=== PATIENT | female | born 1980 | race Caucasian/White ===

== ENCOUNTER 2017-06-11 13:54 | Emergency (ER) | payer OTHER ==
[2017-06-11 16:44] VITALS: BP 108/67
--- NOTE | 2017-06-11 17:18 | UC ---
FLU HPI - HPI Summary HPI Summary: 37 y.o female with h/o ~ 1 week of symptoms. Patient states initially felt like flu, was in bed for severeal days, severe body aches, headache, cough/ congestion. 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 h/o sinus surgery. no daily medications - History of Current Complaint Chief Complaint: UCGeneralIllness Stated Complaint: SINUS AND CHEST CONGESTION Time Seen by Provider: 06/11/17 16:49 Hx Obtained From: Patient Hx Last Menstrual Period: now ?: No Onset/Duration: Sudden Onset, Lasting Days Severity Currently: Moderate Severity Initially: Moderate Pain Intensity: 7 Pain Scale Used: 0-10 Numeric - Allergy/Home Medications Allergies/Adverse Reactions: Allergies Allergy/AdvReac Type Severity Reaction Status Date / Time MS Clarithromycin Allergy Unknown Verified 06/11/17 16:44 [From Biaxin] Reaction Details MS Penicillins [Penicillins] Allergy Unknown Verified 06/11/17 16:44 Reaction Details Home Medications: Home Medications ValACYclovir (*) [Valtrex 500 mg (*)] 500 mg PO DAILY PRN 06/11/17 [History Confirmed 06/11/17] PMH/Surg Hx/FS Hx/Imm Hx Previously Healthy: No - h/o lung disease, currently undergoing eval - Surgical History Surgical History: Yes Surgery Procedure, Year, and Place: sinus 2006; T & A 1989 - Social History Alcohol Use: Occasionally Substance Use Type: None Smoking Status (MU): Former Smoker Length of Time of Smoking/Using Tobacco: 2 YEARS Have You Smoked in the Last Year: No When Did the Patient Quit Smoking/Using Tobacco: 1999 - Immunization History Most Recent Influenza Vaccination: Feb 2013 Review of Systems Constitutional: Fever, Chills, Fatigue ENT: Sore Throat, Ear Ache, Nasal Discharge, Sinus Congestion, Sinus Pain/ Tenderness Respiratory: Shortness Of Breath, Cough Cardiovascular: Negative Gastrointestinal: Negative Genitourinary: Negative Is Patient Immunocompromised?: No All Other Systems Reviewed And Are Negative: Yes Physical Exam Triage Information Reviewed: Yes Appearance: No Pain Distress, Well-Nourished, Ill-Appearing - mild to moderate Vital Signs: Initial Vital Signs Temp 102.3 F 06/11/17 16:38 Pulse 88 06/11/17 16:38 Resp 17 06/11/17 16:38 BP 108/67 06/11/17 16:38 Pulse Ox 99 06/11/17 16:38 Eyes: Positive: Conjunctiva Clear ENT: Positive: Pharyngeal erythema - minimal no exudates, Nasal congestion, TM bulging - L>R, TM red, Sinus tenderness - fraontal, max, Uvula midline. Negative: Tonsillar swelling, Tonsillar exudate, Hoarse voice Neck: Positive: Supple, Nontender, No Lymphadenopathy. Negative: Nuchal Rigidity Respiratory: Positive: Chest non-tender, Lungs clear, Normal breath sounds, No respiratory distress, No accessory muscle use, Wheezing - expiratory, mild all over. Negative: Respiratory distress, Decreased breath sounds Cardiovascular: Positive: RRR, No Murmur, Pulses Normal Abdomen Description: Positive: Nontender, No Organomegaly, Soft, Bruit. Negative: CVA Tenderness (R), CVA Tenderness (L) Musculoskeletal: Positive: Strength Intact Neurological Exam: Normal Psychological Exam: Normal Skin Exam: Normal Flu Course/Dx - Course Course Of Treatment: sinusitis, AOM. abx given, follow up with primary physician. - Differential Dx/Diagnosis Differential Diagnosis/HQI/PQRI: Bronchitis, Influenza, Pneumonia, RSV Provider Diagnoses: sinusitis Discharge - Discharge Plan Condition: Good Disposition: HOME Prescriptions: Levofloxacin TAB* [Levaquin 500 Tab*] 500 mg PO DAILY #7 tab Levofloxacin TAB* [Levaquin TAB*] 500 mg PO DAILY #7 tab Patient Education Materials: Sinusitis (ED) Forms: *Work Release Referrals: Luis Du MD [Primary Care Provider] - Additional Instructions: - Increase fluid intake - ALbuterol for shortness of breath - ANtibiotics as directed - Follow up with primary physician within 1-2 days if no improvement
== END 2017-06-11 17:40 | disposition home or self-care (01) ==
LOC: UCEAST 13:54
DX: J32.9 Chronic sinusitis, unspecified (principal); Z88.1 Allergy status to other antibiotic agents; Z88.0 Allergy status to penicillin; Z87.891 Personal history of nicotine dependence
CPT/HCPCS: 99212; G0463

== ENCOUNTER 2018-05-06 11:58 | Emergency (ER) | payer BC ==
[2018-05-06 12:29] VITALS: BP 122/65
--- NOTE | 2018-05-06 13:00 | UC ---
Throat Pain/Nasal David HPI - HPI Summary HPI Summary: 37-year-old woman comes to clinic today with a chief complaint of sinus congestion and pain and left eye drainage.. For almost 2 Weeks patient has had upper respiratory tract infection symptoms with yellow and green rhinorrhea. It gradually started to improve but then the last couple of days it's gotten worse and she has pressure on the left maxillary sinus area. 2 days she's also had left eye crusting and discharge. No fevers or chills. No shortness of breath. - History of Current Complaint Chief Complaint: UCGeneralIllness Stated Complaint: EYE COMPLAINT,CONGESTED Time Seen by Provider: 05/06/18 12:38 Hx Last Menstrual Period: 04/14/18 Pain Intensity: 5 - Allergies/Home Medications Allergies/Adverse Reactions: Allergies Allergy/AdvReac Type Severity Reaction Status Date / Time clarithromycin Allergy Mild GI Upset Verified 05/06/18 12:30 Penicillins Allergy Mild GI Upset Verified 05/06/18 12:30 PMH/Surg Hx/FS Hx/Imm Hx Previously Healthy: Yes - Surgical History Surgical History: Yes Surgery Procedure, Year, and Place: sinus 2006; T & A 1989 - Family History Known Family History: Positive: Non-Contributory - Social History Alcohol Use: Occasionally Substance Use Type: None Smoking Status (MU): Former Smoker Length of Time of Smoking/Using Tobacco: 2 YEARS Have You Smoked in the Last Year: No When Did the Patient Quit Smoking/Using Tobacco: 1999 - Immunization History Most Recent Influenza Vaccination: Feb 2013 Review of Systems All Other Systems Reviewed And Are Negative: Yes Constitutional: Positive: Negative Skin: Positive: Negative Eyes: Positive: Drainage, Eye Redness ENT: Positive: Sore Throat, Nasal Discharge, Sinus Congestion, Sinus Pain/ Tenderness Respiratory: Positive: Negative Cardiovascular: Positive: Negative Gastrointestinal: Positive: Negative Motor: Positive: Negative Neurovascular: Positive: Negative Musculoskeletal: Positive: Negative Neurological: Positive: Negative Psychological: Positive: Negative Is Patient Immunocompromised?: No Physical Exam Triage Information Reviewed: Yes Appearance: No Pain Distress, Well-Nourished, Ill-Appearing - mild Vital Signs: Initial Vital Signs Temp 98.5 F 05/06/18 12:23 Pulse 78 05/06/18 12:23 Resp 15 05/06/18 12:23 BP 122/65 05/06/18 12:23 Pulse Ox 100 05/06/18 12:23 Vital Signs Reviewed: Yes Eyes: Positive: Conjunctiva Inflamed, Discharge - left ENT: Positive: Pharyngeal erythema, Nasal congestion, Nasal drainage, TMs normal Neck exam: Normal Neck: Positive: Supple Respiratory: Positive: Lungs clear, Normal breath sounds, No respiratory distress Cardiovascular: Positive: RRR Musculoskeletal Exam: Normal Musculoskeletal: Positive: Strength Intact, ROM Intact Neurological Exam: Normal Neurological: Positive: Alert, Muscle Tone Normal Psychological Exam: Normal Psychological: Positive: Age Appropriate Behavior Skin Exam: Normal Throat Pain/Nasal Course/Dx - Differential Dx/Diagnosis Provider Diagnosis: Sinusitis, Conjunctivitis Discharge - Sign-Out/Discharge Documenting (check all that apply): Patient Departure All imaging exams completed and their final reports reviewed: No Studies - Discharge Plan Condition: Stable Disposition: HOME Prescriptions: Amoxicillin/Clavulanate TAB* [Augmentin TAB 875*] 875 mg PO BID #20 tab Tobramycin 0.3% OPHTH.LONG* 1 drop LEFT EYE Q4H #1 btl Patient Education Materials: Sinusitis (ED), Conjunctivitis (ED) Referrals: Jazmin Connors MD [Primary Care Provider] - Additional Instructions: FOLLOW UP WITH YOUR DOCTOR IF NOT COMPLETELY IMPROVED. GET RECHECKED FOR ANY WORSENING OF YOUR CONDITION OR QUESTIONS OR CONCERNS. - Billing Disposition and Condition Condition: STABLE Disposition: Home
== END 2018-05-06 13:10 | disposition home or self-care (01) ==
LOC: UCEAST 11:58
DX: H10.9 Unspecified conjunctivitis (principal); J32.9 Chronic sinusitis, unspecified; R09.89 Other specified symptoms and signs involving the circulatory and respiratory systems; Z88.0 Allergy status to penicillin; Z88.1 Allergy status to other antibiotic agents; Z98.890 Other specified postprocedural states; Z87.891 Personal history of nicotine dependence
CPT/HCPCS: 99212; G0463

== ENCOUNTER 2018-09-29 10:18 | Emergency (ER) | payer BC ==
[2018-09-29 10:35] VITALS: BP 105/62
--- NOTE | 2018-09-29 10:47 | UC ---
Respiratory Complaint HPI - HPI Summary HPI Summary: 38 y/o female presents to the urgent c/o uri symptoms for the past 1.5weeks w / sinuses pressure, yellowish nasal discharge, moderate PND. Pt reports hx of chronic sinusitis. She has had surgery w/ DR Sadler and she has been postponing a second surgery. For the past 2 days, she has developed subjective fever and chills at night time and cough has worsen producing a lot of yellowish phlegm. She has mild wheezing last night. She has taken OTC medication to alleviate symptoms w/o any improvement. She denies Hx of asthma and recently she had a pulmonary function test and she tested negative for asthma. Pt denies fever, today, SOB, chest pain, dizziness, abdominal pain, N/V/ d, ear pain. Sinus pain is 4/10 which is alleviates by taking ibuprofen PO. - History of Current Complaint Chief Complaint: UCRespiratory Stated Complaint: RESP ISSUE EAR PAIN Time Seen by Provider: 09/29/18 10:37 Hx Obtained From: Patient Hx Last Menstrual Period: 09/05/18 ?: No - IUD Onset/Duration: Gradual Onset, Lasting Weeks - 1.5 weeks, Still Present, Worse Since - 2 days w/ fever Timing: Intermittent Episodes Severity Initially: Mild Severity Currently: Moderate Pain Intensity: 3 Pain Scale Used: 0-10 Numeric Character: Cough: Productive, Sputum Description: - yellowish Aggravating Factors: Recumbent Position Alleviating Factors: OTC Meds Associated Signs And Symptoms: Positive: Fever, Chills, Wheezing - mild last night, URI, Nasal Congestion, Hoarseness - Risk Factors Pulmonary Embolism Risk Factors: Negative Cardiac Risk Factors: Negative Pseudomonas Risk Factors: Negative Tuberculosis Risk Factors: Negative - Allergies/Home Medications Allergies/Adverse Reactions: Allergies Allergy/AdvReac Type Severity Reaction Status Date / Time clarithromycin Allergy Mild GI Upset Verified 09/29/18 10:35 Penicillins Allergy Mild GI Upset Verified 09/29/18 10:35 PMH/Surg Hx/FS Hx/Imm Hx Previously Healthy: Yes Other Respiratory History: Chronic sinusitis - Surgical History Surgical History: Yes Surgery Procedure, Year, and Place: sinus 2006; T & A 1989 - Family History Known Family History: Positive: Cardiac Disease, Hypertension, Diabetes - Social History Occupation: Employed Full-time Lives: With Family Alcohol Use: Occasionally Substance Use Type: None Smoking Status (MU): Former Smoker Length of Time of Smoking/Using Tobacco: 2 YEARS Have You Smoked in the Last Year: No When Did the Patient Quit Smoking/Using Tobacco: 1999 - Immunization History Most Recent Influenza Vaccination: Feb 2013 Review of Systems All Other Systems Reviewed And Are Negative: Yes Constitutional: Positive: Fever, Chills, Fatigue Skin: Positive: Negative Eyes: Positive: Negative ENT: Positive: Nasal Discharge - yellowish, Sinus Congestion, Sinus Pain/ Tenderness, Other - Moderate PND Respiratory: Positive: Cough - productive cough w/ yellowish phlegm, Other - mild wheezing last night Cardiovascular: Positive: Negative Gastrointestinal: Positive: Negative Genitourinary: Positive: Negative Motor: Positive: Negative Neurovascular: Positive: Negative Musculoskeletal: Positive: Negative Neurological: Positive: Negative Psychological: Positive: Negative Is Patient Immunocompromised?: No Physical Exam - Summary Physical Exam Summary: Vital Signs Reviewed: Yes General: well developed, well nourished female sitting in the examining table w/ o any apparent distress Eyes: Positive: Conjunctiva Clear - PERRLA, EOMI, fundi grossly normal. ENT: Positive: Normal ENT inspection, Hearing grossly normal, Pharynx normal, Nasal congestion - edematous and erythematous nasal mucosa, Nasal drainage - yellowish drainage, Positive maxillary and frontal tenderness on percussion. moderate yellowish PND. B?l external ear canals clear, TMs normal. Negative: Tonsillar swelling, Tonsillar exudate Neck: Positive: Supple, Nontender, No Lymphadenopathy Respiratory: no orthopnea or dyspnea. Able to speak in full sentences, no retractions or accessory muscle use, no tripod position, stridor, or head bobbing. Positive breath sounds bilaterally. Mild B/L posterior upper lungs w/ scattered rhonchi , no crackles or rales. Cardiovascular: Positive: RRR, No Murmur, Pulses Normal, Brisk Capillary Refill Abdomen Description: Positive: Nontender, No Organomegaly, Soft. Negative: CVA Tenderness (R), CVA Tenderness (L) Bowel Sounds: Positive: Present Musculoskeletal Exam: Normal Musculoskeletal: Positive: Strength Intact, ROM Intact, No Edema Neurological Exam: Normal Psychological Exam: Normal Skin Exam: Normal Triage Information Reviewed: Yes Vital Signs: Initial Vital Signs Temp 99.3 F 09/29/18 10:32 Pulse 90 09/29/18 10:32 Resp 17 09/29/18 10:32 BP 105/62 09/29/18 10:32 Pulse Ox 100 09/29/18 10:32 Respiratory Course/Dx - Course Course Of Treatment: 38 y/o female presents to the urgent c/o uri symptoms for the past 1.5weeks w / sinuses pressure, yellowish nasal discharge, moderate PND. Pt reports hx of chronic sinusitis. She has had surgery w/ DR Sadler and she has been postponing a second surgery. For the past 2 days, she has developed subjective fever and chills at night time and cough has worsen producing a lot of yellowish phlegm. She has mild wheezing last night. She has taken OTC medication to alleviate symptoms w/o any improvement. She denies Hx of asthma and recently she had a pulmonary function test and she tested negative for asthma. Pt denies fever, today, SOB, chest pain, dizziness, abdominal pain, N/V/ d, ear pain. Sinus pain is 4/10 which is alleviates by taking ibuprofen PO. Hx obtained. Pt w/ bacterial sinusitis and B/L posterior upper lungs w/ scattered rhonchi on examination. O2Sat:100%. Chest X-ray ordered to r/o pneumonia since pt has been febrile, Impression: No acute cardiopulmonary disease observed. Pt will be treated for acute bacterial sinusitis. Pt with 1.5 weeks of symptoms getting worse. Pt Rx Amoxicillin PO and flonase nasal spray. Albuterol inhaler to alleviate mild wheezing and cough at night time. Discharge instructions explained to Pt. Advised to Return to the clinic or PCP if symptoms do not improve.Pt understood and agreed with plan of care. - Differential Dx/Diagnosis Differential Diagnosis/HQI/PQRI: Asthma, Bronchitis, Influenza, Laryngitis, Sinusitis, Other - pneumonia Provider Diagnosis: Acute bacterial sinusitis, Cough Discharge - Sign-Out/Discharge Documenting (check all that apply): Patient Departure - d/C home All imaging exams completed and their final reports reviewed: Yes - Discharge Plan Condition: Stable Disposition: HOME Prescriptions: Albuterol HFA INHALER* [Ventolin HFA Inhaler*] 1 - 2 puff INH Q6H PRN #1 mdi PRN Reason: cough/wheezing Amoxicillin/Clavulanate TAB* [Augmentin TAB 875*] 875 mg PO BID #20 tab Fluticasone NASAL SPRAY 50MCG* [Flonase NASAL SPRAY 50MCG*] 2 spray BOTH NARES DAILY #1 btl Patient Education Materials: Sinusitis (ED) Referrals: Dale Sadler MD [Medical Doctor] - If Needed Jazmin Connors MD [Primary Care Provider] - 3 Days Additional Instructions: 1- Please increase fluid intake and rest. take full course of antibiotic to avoid resistance. Please take yogurt w/ probiotics or culturelle to protect your GI system. 2-Use Flonase as directed to help drain fluid. Also buy saline drops to clear sinuses 3-Use Albuterol inhaler and take Delsym or Robitussin to alleviate cough and mild wheezing. increase fluid intake, rest and eat well, avoid strenuous exercise. 4-Please f/u your PCP or ENT DR Sadler if symptoms do not improve for further management and treatment - Billing Disposition and Condition Condition: STABLE Disposition: Home
== END 2018-09-29 11:44 | disposition home or self-care (01) ==
LOC: UCEAST 10:18
DX: J01.80 Other acute sinusitis (principal); B96.89 Other specified bacterial agents as the cause of diseases classified elsewhere
CPT/HCPCS: 71046; 99212; G0463

== ENCOUNTER 2018-10-23 10:30 | Emergency (ER) | payer BC ==
[2018-10-23 11:06] VITALS: BP 114/77
--- NOTE | 2018-10-23 11:47 | UC ---
UC General HPI - HPI Summary HPI Summary: States she had sexual intercourse - no devices involved on evening of 10/20. She woke and she thought she had peed her pants and noticed it was all blood. LMP: 10/07. Had an IUD placed in about 4 years ago. Since this happened the bleeding has not stopped. She is soaking a pad every 1.5-2 hours. She feels tired. No lightheadedness or no dizziness. Does not seem like her period as it is not due for 2 weeks and is regular. Does have some slight cramping but has not been bad enough to take ibuprofen. She called her PCP and they recommended that she go to the ER but she did not want to go there and asked to come to urgent care instead. Meds: reviewed - History of Current Complaint Chief Complaint: UCGU Stated Complaint: PERSONAL Time Seen by Provider: 10/23/18 11:14 Hx Last Menstrual Period: 10/07/18 Pain Intensity: 3 - Allergy/Home Medications Allergies/Adverse Reactions: Allergies Allergy/AdvReac Type Severity Reaction Status Date / Time clarithromycin Allergy Mild GI Upset Verified 10/23/18 11:05 Penicillins Allergy Mild GI Upset Verified 10/23/18 11:05 PMH/Surg Hx/FS Hx/Imm Hx Previously Healthy: Yes - Surgical History Surgical History: Yes Surgery Procedure, Year, and Place: sinus 2006; T & A 1989 - Family History Known Family History: Positive: Cardiac Disease, Hypertension, Diabetes, Non- Contributory - Social History Alcohol Use: Occasionally Substance Use Type: None Smoking Status (MU): Former Smoker Length of Time of Smoking/Using Tobacco: 2 YEARS Have You Smoked in the Last Year: No When Did the Patient Quit Smoking/Using Tobacco: 1999 - Immunization History Most Recent Influenza Vaccination: Feb 2013 Review of Systems All Other Systems Reviewed And Are Negative: Yes Genitourinary: Positive: Abnormal Bleeding Physical Exam Triage Information Reviewed: Yes Appearance: Well-Appearing Vital Signs: Initial Vital Signs Temp 98.7 F 10/23/18 10:58 Pulse 73 10/23/18 10:58 Resp 18 10/23/18 10:58 BP 114/77 10/23/18 10:58 Pulse Ox 99 10/23/18 10:58 Pelvic Exam: Positive: Speculum Exam Normal, Other - limited exam due to bleeding in vaginal vault - limited view of cervix. No obvious tears. unable to visualize or palpate IUD strings. Diagnostics - Radiology transvaginal ultrasound Radiology Interpretation Completed By: Radiologist Summary of Radiographic Findings: IUD in appropriate position. 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 Huang who recommend evaluation in the ER to do a CBC and further work up for vaginal bleeding Patient agreeable to going directly [place] [facility] sign out given to Pili Patient states remains fatigued. COntinuest to have vagina bleeding. No presyncopal symptoms - Diagnoses Provider Diagnosis: Vaginal bleeding Discharge - Sign-Out/Discharge Documenting (check all that apply): Patient Departure All imaging exams completed and their final reports reviewed: Yes - Discharge Plan Condition: Fair Disposition: HOME-RECOMMEND TO ED Referrals: Jazmin Connors MD [Primary Care Provider] - Additional Instructions: Recommend go directly to [facility] for further evaluation for your vaginal bleeding - Billing Disposition and Condition Condition: FAIR Disposition: Home-Recommend to ED
--- NOTE | 2018-10-25 15:05 | UC ---
- Progress Note Progress Note: please call patient she was sent to the ER (+) urine culture please let me know if she has any UTI symptoms I suspect this culture is contamination from her vaginal bleeding Course/Dx - Diagnoses Provider Diagnoses: Vaginal bleeding Discharge - Sign-Out/Discharge Documenting (check all that apply): Post-Discharge Follow Up All imaging exams completed and their final reports reviewed: Yes - Discharge Plan Condition: Fair Disposition: HOME-RECOMMEND TO ED Referrals: Jazmin Connors MD [Primary Care Provider] - Additional Instructions: Recommend go directly to [facility] ER for further evaluation for your vaginal bleeding - Billing Disposition and Condition Condition: FAIR Disposition: Home-Recommend to ED
== END 2018-10-23 13:10 | disposition home health service (06) ==
LOC: UCEAST 10:30
DX: N93.9 Abnormal uterine and vaginal bleeding, unspecified (principal); Z87.891 Personal history of nicotine dependence; Z97.5 Presence of (intrauterine) contraceptive device; Z88.0 Allergy status to penicillin
CPT/HCPCS: 76830; 81003; 84702; 87077; 87086; 87184; 87186; 99211; G0463

== ENCOUNTER 2018-10-23 13:29 | Emergency (ER) | payer BC ==
[2018-10-23 14:31] LABS: ABS Eosinophils 0.1 10^3/ul (0-0.6); ABS Monocytes 0.5 10^3/ul (0-0.8); ABS Neutrophils 4.2 10^3/ul (1.5-7.7); Eosinophil % 1.9 %; Hematocrit 40 % (35-47); Hemoglobin 13.9 g/dL (12.0-16.0); Lymphocyte % 29.1 %; Mean Corpuscular HGB Conc 35 g/dL (31-36); Mean Corpuscular Hemoglobin 32 pg (27-31); Mean Corpuscular Volume 92 fL (80-97); Mean Platelet Volume 8.9 fL (7.4-10.4); Nucleated Red Blood Cells % 0.1; Platelet Count 228 10^3/uL (150-450); Red Blood Count 4.36 10^6 /uL (3.70-4.87); Red Cell Distribution Width 13 % (10-15); White Blood Count 6.8 10^3/uL (3.5-10.8)
[2018-10-23 14:52] LABS: ALT 14 U/L (7-52); AST 14 U/L (13-39); Albumin 4.6 g/dL (3.2-5.2); Albumin/Globulin Ratio 1.7 (1-3); Alkaline Phosphatase 42 U/L (34-104); Amylase 40 U/L (29-103); Anion Gap 7 mmol/L (2-11); BUN/Creatinine Ratio 13.3 (8-20); Blood Urea Nitrogen 10 mg/dL (6-24); C Reactive Protein < 1.00 mg/L (<8.01); CO2 Carbon Dioxide 27 mmol/L (22-32); Calcium 9.9 mg/dL (8.6-10.3); Chloride 106 mmol/L (101-111); Creatine Kinase 63 U/L (10-223); EGFR African American 105.2 (>60); Globulin 2.7 g/dL (2-4); Glucose 94 mg/dL (70-100); Potassium 4.1 mmol/L (3.5-5.0); Sodium 140 mmol/L (135-145); Total Protein 7.3 g/dL (6.4-8.9)
[2018-10-23] MEDS: NS 0.9% 1000 ML** 1,000 ML IV.FLUID IV ONE (14:52)
[2018-10-23 14:57] LABS: HCG Pregnancy < 0.60 mIU/mL
--- NOTE | 2018-10-23 15:17 | ED ---
GI/ HPI - HPI Summary HPI Summary: Pt is a 38 y/o F presenting to the ED with a chief complaint of vaginal bleeding first onset on 10/20/18 after having intercourse on 10/19/18. She reports soaking 1.5-2 pads each hour, and originally went to [facility] because of the bleeding. She states it cannot be her period, as she is always regular and is not due for another 2 weeks, and her test at [facility] was negative. She also states the blood is bright red and thin, unlike her normal thick menstrual blood. She has had the same partner for the past 3 years, she has hx of HPV but her last test did not show it, her last pap smear was within the last 3 years, and her IUD has been in for approximately 4 years. While at [facility], pt had an US which showed the IUD in good location and no perforation. On pelvic exam Dr. Brunson could not see the IUD strings, states the exam was limited by blood, but she did not see any vaginal laceration or source of the bleeding. Dr. Brunson spoke with Dr. Huang who recommended that pt come to the ED for further evaluation. She reports slight L sided abd pain, and slight fatigue. A1. Vital signs in room: HR 80bpm, 16 respirations per minute, 99% SaO2 on room air , BP 121/88. Home Medications Medication Instructions Recorded Confirmed Type ValACYclovir (*) [Valtrex 500 mg 500 mg PO DAILY PRN 06/11/17 10/23/18 History (*)] Fluticasone NASAL SPRAY 50MCG* 2 spray BOTH NARES DAILY #1 btl 09/29/18 Rx [Flonase NASAL SPRAY 50MCG*] - History of Current Complaint Chief Complaint: EDVaginalBleeding Time Seen by Provider: 10/23/18 14:06 Stated Complaint: ABD PAIN COMING FROM CONVENIENT CARE PER PT Hx Obtained From: Patient, Medical Records - [facility] Hx Last Menstrual Period: 10/07/18 Onset/Duration: Started Days Ago, Still Present Timing: Constant, Lasting Days Severity: Severe Current Severity: Severe Vaginal Bleeding Description: Bright Red Number of Pads per Hour: 2 Pain Intensity: 1 Location of Pain: LLQ Pain Characteristics: Cramping Associated Signs and Symptoms: Positive: Abdominal Pain, Other: - fatigue Additional Signs & Symptoms: Positive: Vaginal Bleeding, - 2, Para - 1, AB 1, First Day of Last Menstral Period - 10/09/18, IUD Aggravating Factor(s): Dent Alleviating Factor(s): Nothing - Allergy/Home Medications Allergies/Adverse Reactions: Allergies Allergy/AdvReac Type Severity Reaction Status Date / Time clarithromycin AdvReac Mild GI Upset Verified 10/23/18 13:32 Penicillins AdvReac Mild GI Upset Verified 10/23/18 13:32 PMH/Surg Hx/FS Hx/Imm Hx Previously Healthy: No Endocrine/Hematology History: Denies: Hx Diabetes, Hx Thyroid Disease Cardiovascular History: Reports: Hx Valvular Heart Disease - MVP Denies: Hx Hypertension, Hx Pacemaker/ICD Respiratory History: Denies: Hx Chronic Obstructive Pulmonary Disease (COPD) GI History: Denies: Hx Ulcer History: Denies: Hx Dialysis, Hx Renal Disease Sensory History: Reports: Hx Contacts or Glasses - GLASSES Denies: Hx Hearing Aid Opthamlomology History: Reports: Hx Contacts or Glasses - GLASSES Psychiatric History: Denies: Hx Panic Disorder - Surgical History Surgery Procedure, Year, and Place: sinus 2006; T & A 1989 Hx Anesthesia Reactions: No Infectious Disease History: No Infectious Disease History: Denies: Hx Hepatitis, Hx Human Immunodeficiency Virus (HIV), History Other Infectious Disease, Traveled Outside the [place] in Last 30 Days - Family History Known Family History: Positive: Cardiac Disease, Hypertension, Diabetes, Non- Contributory - Social History Lives: With Family Alcohol Use: Occasionally Hx Substance Use: No Substance Use Type: Reports: None Hx Tobacco Use: Yes Smoking Status (MU): Former Smoker Length of Time of Smoking/Using Tobacco: 2 YEARS Have You Smoked in the Last Year: No Review of Systems Positive: Fatigue ENT: Negative Cardiovascular: Negative Respiratory: Negative Positive: Abdominal Pain Positive: other - vaginal bleeding Musculoskeletal: Negative Skin: Negative Neurological: Negative Psychological: Normal All Other Systems Reviewed And Are Negative: Yes Physical Exam - Summary Physical Exam Summary: Appearance: Ill-appearing, moderate pain distress, well-nourished, Pt's systolic BP drops 9 points with standing. Pt is not tachycardic Skin: Warm, color reflects adequate perfusion, dry Head: Normal Head/Face inspection, atraumatic Eyes: Conjunctiva clear ENT: Normal inspection Neck: Supple, no nodes, no JVD Respiratory: Lungs clear, normal breath sounds, no respiratory distress Cardio: RRR, No murmur, pulses normal, brisk capillary refill Abdomen: Soft, mild RLQ tenderness Vaginal exam deferred as it was done at [facility] and did not reveal a source of the bleeding. No source of bleeding on external genitalia. Bowel sounds: Present Musculoskeletal: Strength Intact/ROM intact, no calf tenderness, no edema. Psychological: Normal Neuro: Alert, muscle tone normal, no focal deficit Triage Information Reviewed: Yes Vital Signs On Initial Exam: Initial Vitals Temp Pulse Resp BP Pulse Ox 98.9 F 80 16 121/88 99 10/23/18 13:33 10/23/18 13:33 10/23/18 13:33 10/23/18 13:33 10/23/18 13:33 Vital Signs Reviewed: Yes Diagnostics - Vital Signs Vital Signs Temp Pulse Resp BP Pulse Ox 10/23/18 15:00 76 115/79 10/23/18 13:33 98.9 F 80 16 121/88 99 - Laboratory Lab Results: Lab Results 10/23/18 10/23/18 10/23/18 Range/Units 14:22 14:22 14:22 WBC 6.8 (3.5-10.8) 10^3/uL RBC 4.36 (3.70-4.87) 10^6 /uL Hgb 13.9 (12.0-16.0) g/dL Hct 40 (35-47) % MCV 92 (80-97) fL MCH 32 H (27-31) pg MCHC 35 (31-36) g/dL RDW 13 (10-15) % Plt Count 228 (150-450) 10^3/uL MPV 8.9 (7.4-10.4) fL Neut % (Auto) 61.8 % Lymph % (Auto) 29.1 % Mower % (Auto) 6.7 % Eos % (Auto) 1.9 % Baso % (Auto) 0.5 % Absolute Neuts (auto) 4.2 (1.5-7.7) 10^3/ul Absolute Lymphs (auto) 2.0 (1.0-4.8) 10^3/ul Absolute Monos (auto) 0.5 (0-0.8) 10^3/ul Absolute Eos (auto) 0.1 (0-0.6) 10^3/ul Absolute Basos (auto) 0.0 (0-0.2) 10^3/ul Absolute Nucleated RBC 0.0 10^3/ul Nucleated RBC % 0.1 APTT 32.8 (26.0-38.0) seconds Sodium 140 (135-145) mmol/L Potassium 4.1 (3.5-5.0) mmol/L Chloride 106 (101-111) mmol/L Carbon Dioxide 27 (22-32) mmol/L Anion Gap 7 (2-11) mmol/L BUN 10 (6-24) mg/dL Creatinine 0.75 (0.51-0.95) mg/dL Est GFR ( Amer) 105.2 (>60) Est GFR (Non-Af Amer) 87.0 (>60) BUN/Creatinine Ratio 13.3 (8-20) Glucose 94 (70-100) mg/dL Lactic Acid (0.5-2.0) mmol/L Calcium 9.9 (8.6-10.3) mg/dL Total Bilirubin 1.50 H (0.2-1.0) mg/dL AST 14 (13-39) U/L ALT 14 (7-52) U/L Alkaline Phosphatase 42 (34-104) U/L Total Creatine Kinase 63 (10-223) U/L C-Reactive Protein < 1.00 (<8.01) mg/L Total Protein 7.3 (6.4-8.9) g/dL Albumin 4.6 (3.2-5.2) g/dL Globulin 2.7 (2-4) g/dL Albumin/Globulin Ratio 1.7 (1-3) Amylase 40 (29-103) U/L Lipase 24 (11.0-82.0) U/L Beta HCG, Quant < 0.60 mIU/mL Blood Type Antibody Screen 10/23/18 10/23/18 Range/Units 14:22 14:22 WBC (3.5-10.8) 10^3/uL RBC (3.70-4.87) 10^6 /uL Hgb (12.0-16.0) g/dL Hct (35-47) % MCV (80-97) fL MCH (27-31) pg MCHC (31-36) g/dL RDW (10-15) % Plt Count (150-450) 10^3/uL MPV (7.4-10.4) fL Neut % (Auto) % Lymph % (Auto) % Mower % (Auto) % Eos % (Auto) % Baso % (Auto) % Absolute Neuts (auto) (1.5-7.7) 10^3/ul Absolute Lymphs (auto) (1.0-4.8) 10^3/ul Absolute Monos (auto) (0-0.8) 10^3/ul Absolute Eos (auto) (0-0.6) 10^3/ul Absolute Basos (auto) (0-0.2) 10^3/ul Absolute Nucleated RBC 10^3/ul Nucleated RBC % APTT (26.0-38.0) seconds Sodium (135-145) mmol/L Potassium (3.5-5.0) mmol/L Chloride (101-111) mmol/L Carbon Dioxide (22-32) mmol/L Anion Gap (2-11) mmol/L BUN (6-24) mg/dL Creatinine (0.51-0.95) mg/dL Est GFR ( Amer) (>60) Est GFR (Non-Af Amer) (>60) BUN/Creatinine Ratio (8-20) Glucose (70-100) mg/dL Lactic Acid 0.5 (0.5-2.0) mmol/L Calcium (8.6-10.3) mg/dL Total Bilirubin (0.2-1.0) mg/dL AST (13-39) U/L ALT (7-52) U/L Alkaline Phosphatase (34-104) U/L Total Creatine Kinase (10-223) U/L C-Reactive Protein (<8.01) mg/L Total Protein (6.4-8.9) g/dL Albumin (3.2-5.2) g/dL Globulin (2-4) g/dL Albumin/Globulin Ratio (1-3) Amylase (29-103) U/L Lipase (11.0-82.0) U/L Beta HCG, Quant mIU/mL Blood Type O Positive Antibody Screen Negative Result Diagrams: 10/23/18 17:24 10/23/18 14:22 Lab Statement: Any lab studies that have been ordered have been reviewed, and results considered in the medical decision making process. Re-Evaluation - Re-Evaluation First Eval Re-Evaluation Time: 17:10 Change: Unchanged Comment: Patient states that she has gone through 2 pads since coming to ED. Abd pain denied. Fluids were given, patient states she feels "okay". Discussed bloodwork so far as well as orthostatics. Dizziness is denied. Patient is followed by Dr. Connors. OBGYN to be consulted and repeat CBC to be obtained. GIGU Course/Dx - Course Course Of Treatment: Pt is a 38 y/o F presenting to the ED with a chief complaint of vaginal bleeding first onset on 10/20/18 after having intercourse on 10/19/18. She reports soaking 1.5-2 pads each hour, and originally went to [facility] because of the bleeding. She states it cannot be her period, as she is always regular and is not due for another 2 weeks, and her test at [facility] was negative. She also states the blood is bright red and thin, unlike her normal thick menstrual blood. Her partner has remained regular for the past 3 years, she has hx of HPV but her last test did not show it, her last pap smear was within the last 3 years, and her IUD has been in for approximately 4 years. She reports slight L sided abd pain, and slight fatigue. On exam, she has slight LLQ tenderness. Her orthostatic vitals are as follows: Lying down: HR 69bpm, BP 124/89. Sitting: HR 71bpm, BP 117/77. Standing: HR 76bpm, BP 115/79, with no symptoms. Her systolic BP dropped approx. 9 points from lying down to standing. Bloodwork showed MCH 32, Hct 40, Hgb 13.9, total bilirubin 1.5, lipase 24, amylase 40, Beta HCG < 0.60. UA showed 3+ blood, 3+ RBC, present squamous epith cells. 1710 - Patient states that she has gone through 2 pads since coming to ED. Abd pain denied. Fluids were given, patient states she feels "okay". Discussed bloodwork so far as well as orthostatics. Dizziness is denied. Patient is followed by Dr. Connors. OBGYN to be consulted and repeat CBC to be obtained. Second CBC showed MCH 32. Hgb was 12.4, Hct 36, RBC 3.88. This is not a significant drop after a liter of fluids in the ED. Patient's case was discussed with Dr. Huang, Dr. Huang states that she wants to see patient in office 10/25/18 and that her office will contact the patient for appointment. She advises pelvic rest, to use pads, not tampons, and to return to ED for any new or worsening symptoms. Patient was discharged to home hemodynamically stable, strict return precautions given. She is agreeable with follow-up plan. - Diagnoses Differential Diagnoses - Female: Blood Dyscrasia, Cervicitis, DVB/Menopause, Incomplete , Neoplasm, Retained Foreign Body, Other - vaginal trauma after intercours Provider Diagnoses: Menorrhagia, premenopausal - Physician Notifications Discussed Care Of Patient With: Nithin Huang Time Discussed With Above Provider: 17:15 Instructed by Provider To: Other - Patient's case was discussed with Dr. Huang , Dr. Huang states that she wants to see patient in office 10/25/18 and that her office will contact the patient for appointment. She advises pelvic rest, to use pads, not tampons, and to return to ED for any new or worsening symptoms. Discharge - Sign-Out/Discharge Documenting (check all that apply): Patient Departure - discharge Patient Received Moderate/Deep Sedation with Procedure: No - Discharge Plan Condition: Stable Disposition: HOME Patient Education Materials: Dysfunctional Uterine Bleeding (ED) Referrals: Nithin Huang MD [Medical Doctor] - 2 Days Jazmin Connors MD [Primary Care Provider] - Additional Instructions: We talked to Dr. Nithin Huang, [facility] specialist, about your care today. She will see you in the office on , October 25. We did blood tests today that did not show that your anemic. You were not orthostatic, meaning that her blood pressure did not drop to severely when you stood up. Your blood count was stable while you were in the emergency department. He received 1 L of normal saline IV fluids. He did have continued bleeding while you were in the department, but it was controlled enough that he did not need further intervention at this time. Dr. Huang advises that you should have pelvic rest, meaning no intercourse, do not place anything in the vagina. You should continue to use pads, not tampons. He should return to the emergency department if you have any new or worsening symptoms. - Billing Disposition and Condition Condition: STABLE Disposition: Home - Attestation Statements Document Initiated by Martín: Yes Documenting Scribe: Mary Vuong Provider For Whom Raheelibe is Documenting (Include Credential): Dr. Alexandrea Sutherland MD. Scribe Attestation: I, Mary Sanchez and Nick Vuong, scribed for Dr. Alexandrea Sutherland MD. on 10/25/18 at 0617. Scribe Documentation Reviewed: Yes Provider Attestation: The documentation as recorded by the raheelibe, Mary Vuong accurately reflects the service I personally performed and the decisions made by me, Dr. Alexandrea Sutherland MD. Status of Scribe Document: Viewed
[2018-10-23 15:18] LABS: Urine Appearance Clear; Urine Bacteria Absent (Absent); Urine Bilirubin Negative (Negative); Urine Blood 3+ (Negative); Urine Color Yellow; Urine Glucose Negative (Negative); Urine Ketones Negative (Negative); Urine Nitrite Negative (Negative); Urine Protein Negative (Negative); Urine Red Blood Cell 3+(>10/hpf) (Absent); Urine Squamous Epithelial Cell Present (Absent); Urine Urobilinogen Negative (Negative); Urine White Blood Cell Trace(0-5/hpf) (Absent)
[2018-10-23 17:31] LABS: ABS Eosinophils 0.1 10^3/ul (0-0.6); ABS Lymphocytes 2.4 10^3/ul (1.0-4.8); ABS Monocytes 0.5 10^3/ul (0-0.8); Eosinophil % 1.8 %; Hematocrit 36 % (35-47); Hemoglobin 12.4 g/dL (12.0-16.0); Lymphocyte % 39.9 %; Mean Corpuscular HGB Conc 34 g/dL (31-36); Mean Corpuscular Hemoglobin 32 pg (27-31); Mean Corpuscular Volume 93 fL (80-97); Mean Platelet Volume 8.7 fL (7.4-10.4); Nucleated Red Blood Cells % 0.1; Platelet Count 191 10^3/uL (150-450); Red Blood Count 3.88 10^6 /uL (3.70-4.87); Red Cell Distribution Width 13 % (10-15)
[2018-10-23 18:52] VITALS: BP 119/78
== END 2018-10-23 18:50 | disposition home or self-care (01) ==
LOC: ED 13:29
DX: N92.0 Excessive and frequent menstruation with regular cycle (principal); Z87.891 Personal history of nicotine dependence
CPT/HCPCS: 36415; 80053; 81003; 81015; 82150; 82550; 83605; 83690; 84702; 85025; 85730; 86140; 86850; 86900; 86901; 96360; 96361; 99282